=== PATIENT | male | born 1980 | race Caucasian/White ===

== ENCOUNTER 2016-12-27 03:15 | Emergency (ER) | payer BC ==
[~2016-12-27] VITALS: Ht 177.8 cm; Wt 95.5 kg
[2016-12-27] MEDS ORDERED: FLEXERIL10 MG PO (05:41)
[2016-12-27] MEDS ORDERED: PERCOCET 5/31 TABLET PO (05:41)
[2016-12-27 05:48] VITALS: BP 145/115
== END 2016-12-27 05:55 | disposition home or self-care (01) ==
LOC: EME 03:15
DX: M54.32 Sciatica, left side (principal)
CPT/HCPCS: 99281; 99283; J1885; J2270